=== PATIENT | male | born 1965 | race Caucasian/White ===

== ENCOUNTER 2024-10-21 16:00 | Emergency (ER) | payer OTHER, SELFPAY ==
--- NOTE | 2024-10-21 16:17 | ED.GENMED ---
ED Provider Triage
<Alma Pizano PA-C - Last Filed: 10/21/24 16:18>
-
Patient seen by provider in Triage?: Seen in Triage
Attestation: A medical screening examination has been initiated by a qualified medical provider. Based on the assessment performed at this time, it has been determined that an emergent medical condition may exist and the patient has been informed
that further medical evaluation and possible additional diagnostic testing may be needed.
HPI: 59yoM here for R lateral rib pain. Fell off tailgate of car last night landing on R ribcage. C/o pain with breathing. Denies abd pain.
GENERAL: Alert , in no apparent distress
EYE: No visual abnormalities.
NECK: Trachea midline
ENT: No visible abnormalities.
LUNGS: No acute respiratory distress
NEUROLOGICAL: Alert and oriented
SKIN: Skin intact. No visible changes.
MUSCULOSKELETAL: Moving extremities normally
PSYCH: Normal and appropriate interaction.
This is a medical evaluation conducted in person to initiate diagnostic evaluation and provide initial therapeutics. Please see further documentation by the treating clinician.
No ecchymosis or crepitus on exam. Bilateral breath sounds noted. CT chest ordered.
History of Present Illness
<Alma Pizano PA-C - Last Filed: 10/21/24 16:18>
General
Chief Complaint: Fall
Time Seen by Provider: 10/21/24 16:44
<Carla Rodriguez PA-C - Last Filed: 10/21/24 22:17>
General
Source: patient
Exam Limitations: none
Nursing documentation reviewed up to this point in time: agreed with
History of Present Illness
History of Present Illness:
This is a 59-year-old male with past medical history of CHF, hypertension, hyperlipidemia who presents emergency department today with concerns of right sided rib pain following a fall. Patient reports that last evening, he was standing on the
tailgate of his truck when he lost his footing and he fell back landing on his right side. Patient reports that he does not have a lot of pain at the time and states that he is able to get up on his own and ambulate without any difficulties and he
carried on the rest of his day. Patient states that he started to get some pain which got a lot worse and now he has occultly taking a deep breath without severe pain. He denies any abdominal pain. He does not take any blood thinners. He denies
substernal chest pain. He does note intermittent shortness of breath. He denies hitting his head when he fell. He denies any loss of consciousness, denies any headache, denies any neck pain. Denies any trouble swallowing.
Past History
<Alma Pizano PA-C - Last Filed: 10/21/24 16:18>
Past History
ED Past Medical History: HTN and NIDDM (Borderline)
ED Past Surgical History: Orthopedic
Social History
Tobacco: Smoker
Alcohol: Occasional
Personal:
Living: with family
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
Family History
Family History: Diabetes and Hypertension
Review of Systems
<Carla Rodriguez PA-C - Last Filed: 10/21/24 22:17>
Review of Systems
All Other Systems: ROS reviewed and negative except as documented in HPI and ROS
Phy Exam
<Carla Rodriguez PA-C - Last Filed: 10/21/24 22:17>
Physical Exam
Physical Exam:
General: Patient is well appearing and in no acute distress; non-toxic
Skin: Warm and dry, no rashes or lesions
Head: Normocephalic, atraumatic
Eyes: Sclera non-icteric. EOMs intact.
Cardiac: Regular rate and rhythm, no murmurs, tenderness to palpation noted over the right lateral chest wall, no palpable crepitus no ecchymosis
Peripheral Vascular: No lower extremity swelling or edema
Pulm: Normal respiratory effort, no wheezes, rales, rhonchi
Abdomen: No abdominal tenderness to palpation
Musculoskeletal: No tenderness to palpation of right upper and lower extremity, full ROM, no pain with ROM
Neuro: CN II-XII intact, no focal neurologic deficits. 5/5 strength bilateral upper and lower extremities
Psychiatric: Appropriate mood and affect.
Course
<Alma Pizano PA-C - Last Filed: 10/21/24 16:18>
Orders/Labs/Results
Orders:
Orders
10/21/24 16:15
CT Chest W/o Iv Contrast Urgent
Comment:
Reason For Exam: R lateral rib pain s/p fall
10/21/24 17:21
Acetaminophen [Tylenol] 650 mg PO NOW STA
10/21/24 20:21
Oxycodone [Roxicodone] 5 mg PO NOW STA
10/21/24 20:36
Incentive Spirometry [Rx Incentive Spirometry] [RESP] Urgent
Frequency: q1h while awake
Vital Signs
Initial and Last Documented VS:
Initial Vital Signs
Temp Pulse Resp Pulse Ox
98.0 F 82 16 96
10/21/24 16:12 10/21/24 16:12 10/21/24 16:12 10/21/24 16:12
Last Documented Vital Signs
Temp Pulse Resp BP Pulse Ox
98.0 F 73 16 149/99 96
10/21/24 16:12 10/21/24 17:31 10/21/24 17:31 10/21/24 17:31 10/21/24 17:31
<Carla Rodriguez PA-C - Last Filed: 10/21/24 22:17>
Orders/Labs/Results
Orders:
Orders
10/21/24 16:15
CT Chest W/o Iv Contrast Urgent
Comment:
Reason For Exam: R lateral rib pain s/p fall
10/21/24 17:21
Acetaminophen [Tylenol] 650 mg PO NOW STA
10/21/24 20:21
Oxycodone [Roxicodone] 5 mg PO NOW STA
10/21/24 20:36
Incentive Spirometry [Rx Incentive Spirometry] [RESP] Urgent
Frequency: q1h while awake
Vital Signs
Initial and Last Documented VS:
Initial Vital Signs
Temp Pulse Resp Pulse Ox
98.0 F 82 16 96
10/21/24 16:12 10/21/24 16:12 10/21/24 16:12 10/21/24 16:12
Last Documented Vital Signs
Temp Pulse Resp BP Pulse Ox
98.0 F 73 16 149/99 96
10/21/24 16:12 10/21/24 17:31 10/21/24 17:31 10/21/24 17:31 10/21/24 17:31
<Carla Rodriguez PA-C - Last Filed: 10/21/24 22:17>
MDM/Problems Addressed
Differential Diagnosis Includes:
ddx include rib fracture, rib contusion, pneumothorax, hemothorax
MDM/Problems Addressed:
59-year-old male presents emergency department today with right lateral rib pain following a fall. On exam he has tenderness to palpation over the right external chest wall. No palpable crepitus. Lung sounds alert equal bilaterally. He got a CAT
scan of the chest which revealed 2 rib fractures. With no pericardial effusion no pneumothorax, no hemothorax.. Did show dense coronary artery calcification. Discussed findings with patient and importance for outpatient cardiology follow-up.
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 Discussed use of incentive spirometer discussed Percocet for pain control. Follow-up with PCP. Patient stable for discharge
Chronic conditions affecting care:
CAD, hypertension, hlp
<Carla Rodriguez PA-C - Last Filed: 10/21/24 22:17>
*Pulse Oximetry
Patient hypoxic: no
*Critical Care Note
Total Time (30-74mins, 75-104mins- exclusive of procedures): Not Applicable
Data Reviewed
Review of Other/Old Records Reveals: Records (Reviewed ER physician documentation from 04/01/2023 patient seen for cellulitis) and Discharge Summary (Reviewed discharge summary from 02/28/2014 patient seen for acute heart failure with newly diagnosed
cardiomyopathy with LAD lesion)
Source: patient and records
Prescriptions/Medications Considered But Not Given:
n/a
<Carla Rodriguez PA-C - Last Filed: 10/21/24 22:17>
Patient Management
Escalation/DeEscalation of care consider admission/obs:
Admit not indicated
patient stable for discharge
ED Attending Note
<Alma Pizano PA-C - Last Filed: 10/21/24 16:18>
-
Portions of this chart may have been created with voice recognition software.� Occasional wrong word or��sound alike� substitutions may have occurred due to the inherent limitations of voice recognition software.
Discharge Plan
Departure
Patient Disposition: Home (Routine Discharge)
Date of Disposition: 10/21/24
Time of Disposition: 21:02
Patient with high blood pressure during this ER visit?: Yes
Condition: Good
Discharge Problem:
Right rib fracture
Instructions: Rib injury in adults, Preventing falls in adults, BLOOD PRESSURE
Prescriptions:
New
(DME) pen needle, diabetic [BD Kierra 2nd Gen Pen Needle] 32 gauge x ' needle
See Rx Instructions .ROUTE Qty: 100 0RF
Rx Instructions:
As directed
oxycodone-acetaminophen [Percocet] 5-325 mg tablet
1 tab PO Q6HPRN PRN (Reason: pain) Qty: 8 0RF
No Action
carvedilol 12.5 MG tablet
12.5 mg PO BID Qty: 60 11RF
aspirin 81 MG tablet,delayed release (DR/EC)
81 mg PO DAILY Qty: 0 0RF
lisinopril 5 MG tablet
5 mg PO BID Qty: 60 11RF
cyclobenzaprine 10 MG tablet
10 mg PO PRN PRN (Reason: back pain)
potassium [Potassium-99] 99 MG tablet
99 mg PO BID
vitamin B complex 1 TAB tablet
1 tab PO DAILY
orbddjuv-chktu-zse 149-hyal ac 1 EACH tablet
1 ea PO BID
atorvastatin 20 MG tablet
20 mg PO DAILY
oxycodone-acetaminophen 5 MG/325 MG tablet
0.5 - 2 tab PO Q4HPRN PRN (Reason: pain not relieved by ibuprofen) Qty: 15 0RF
ibuprofen 200 MG tablet
600 mg PO QID Qty: 1 0RF
oxycodone-acetaminophen 5 MG/325 MG tablet
0.5 - 1 tab PO Q4HPRN PRN (Reason: pain) Qty: 10 0RF
oxycodone-acetaminophen 5 MG/325 MG tablet
1 tab PO Q4HPRN PRN (Reason: pain) Qty: 10 0RF
cephalexin 500 mg capsule
500 mg PO TID Qty: 21 0RF
hydrocodone-acetaminophen 5-325 mg tablet
1 tab PO Q8H PRN (Reason: Pain) Qty: 8 0RF
Referrals:
Freddy Duarte MD [Family Provider] -
Stand Alone Forms: Return to Work
Activity Restrictions/Additional Instructions:
Your CT scan reveals fractures of the lateral right eight and ninth ribs with no significant displacement or angulation. Percocet has been sent to your pharmacy. You can take one tablet every 6 hours as needed for pain.
Your CAT scan also revealed coronary artery calcifications, I recommend calling your radio board operator announcer to schedule a follow-up appointment.
Please refrain from work for 2 weeks. Please schedule an appointment with primary care provider in 2 weeks to determine clearance for returning to work.
PLEASE RETURN TO EMERGENCY DEPARTMENT SHOULD YOU DEVELOP CHEST PAIN, SHORTNESS OF BREATH, ACUTE WORSENING OF YOUR PAIN, INABILITY TO AMBULATE, WEAKNESS ON ONE SIDE VIRUS OTHER, TROUBLE SWALLOWING, NECK PAIN, INTRACTABLE NAUSEA OR VOMITING,
CONFUSION, OR ANY OTHER SIGNS OR SYMPTOMS WORRISOME TO YOU
Interventions
Interventions:
*Risk Screen - Suicide Last Done: 10/21/24 17:33
*General Assessment Last Done: 10/21/24 17:33
*ED COVID-19 Vaccine History Last Done: 10/21/24 17:33
*Nursing Disposition Last Done: 10/21/24 21:14
ED-Musculoskeletal Assessment Last Done: 10/21/24 18:10
ED- Neurological Assessment Last Done: 10/21/24 18:10
ED-Skin Assessment Last Done: 10/21/24 18:12
Discharge Date and Time
Discharge Date/Time: 10/21/24 21:16
Print Language: BANGLADESHI
[2024-10-21 17:31] VITALS: BP 149/99
[2024-10-21 17:33] VITALS: BMI 31.5
[2024-10-21] MEDS: TYLENOL 650 MG PO (17:40)
[2024-10-21] MEDS: ROXICODONE 5 MG PO (20:25)
== END 2024-10-21 21:16 | disposition home or self-care (01) ==
LOC: EMR 16:00
PROVIDERS: EMERGENCY PHYSICIAN Student in an Organized Health Care Education/Training Program; FAMILY PHYSICIAN Family Medicine
DX: S22.41XA Multiple fractures of ribs, right side, initial encounter for closed fracture (principal); W19.XXXA Unspecified fall, initial encounter; I11.0 Hypertensive heart disease with heart failure; I50.9 Heart failure, unspecified; E78.5 Hyperlipidemia, unspecified; E11.9 Type 2 diabetes mellitus without complications; F17.200 Nicotine dependence, unspecified, uncomplicated
CPT/HCPCS: 99284; 71250

== ENCOUNTER → 2025-01-12 16:06 | Outpatient (REF) | payer OTHER, SELFPAY | LOC: RCS 16:06 | PROVIDERS: ATTENDING PHYSICIAN Internal Medicine Cardiovascular Disease; FAMILY PHYSICIAN Family Medicine | DX: I42.8 Other cardiomyopathies (principal) | CPT/HCPCS: 93306 ==